=== PATIENT | male | born 1965 | race Hispanic/Latino ===

== ENCOUNTER 2021-10-15 18:19 | Emergency (ER) | payer SELFPAY ==
[2021-10-15] MEDS ORDERED: Oseltamivir 75 MG CAP ONE (19:52)
[2021-10-16 13:46] LABS: SARS-CoV-2 PCR by NAA DETECTED (NotDetected)
== END 2021-10-15 19:55 | disposition home or self-care (01) ==
LOC: NAV ERS 18:19
DX: U07.1 COVID-19 (principal); J11.1 Influenza due to unidentified influenza virus with other respiratory manifestations
CPT/HCPCS: 87804; 99283; U0003; U0005